=== PATIENT | female | born 1955 | race Caucasian/White ===

== ENCOUNTER → 2022-01-06 | Outpatient (CLI) | payer MEDICARE ==
[2022-01-06 16:37] LABS: BASOPHILS ABSOLUTE AUTO 0.07 K/mm3 (0.00-0.23); BASOPHILS PERCENT AUTO 1 % (0-2); EOSINOPHILS ABSOLUTE AUTO 0.23 K/mm3 (0.00-0.68); EOSINOPHILS PERCENT AUTO 4 % (0-6); Hematocrit 43.4 % (33.0-51.0); Hemoglobin 14.4 g/dL (11.5-16.0); IMMATURE GRAN ABSOLUTE AUTO 0.01 K/mm3 (0.00-0.10); IMMATURE GRAN PERCENT AUTO 0 % (0-1); LYMPHOCYTES ABSOLUTE AUTO 1.28 K/mm3 (0.84-5.20); LYMPHOCYTES PERCENT AUTO 20 % (21-46); MONOCYTES PERCENT AUTO 8 % (4-13); Mean Corpuscular HGB Conc 33.2 g/dL (31.5-36.5); Mean Corpuscular Volume 93 fL (80-100); Mean Platelet Volume 11.9 fL (9.1-12.4); NEUTROPHILS ABSOLUTE AUTO 4.25 K/mm3 (1.96-9.15); NEUTROPHILS PERCENT AUTO 67 % (41-73); Platelet Count 211 K/mm3 (150-400); RDW Coefficient Variation 12.2 % (11.7-14.2); RDW Standard Deviation 42.3 fL (35.1-46.3); Red Blood Cell Count 4.65 M/mm3 (3.80-5.20); White Blood Cell Count 6.34 K/mm3 (4.00-11.30)
[2022-01-06 17:23] LABS: Alanine Aminotransfer (ALT/SGP 38 U/L (12-78); Albumin, Blood 3.5 g/dL (3.4-5.0); Albumin/Globulin Ratio 1.3 (0.8-1.8); Alk Phos 95 U/L (50-136); Anion Gap 6 mmol/L (6-16); Aspartate Aminotrans (AST/SGOT 26 U/L (12-37); Bilirubin, Total 0.3 mg/dL (0.1-1.0); Blood Urea Nitrogen 25 mg/dL (8-24); CHOL/HDL RATIO 2.8; CO2, Blood 25 mmol/L (21-32); Calcium, Blood 9.2 mg/dL (8.5-10.1); Chloride, Blood 111 mmol/L (98-108); Cholesterol 150 mg/dL (50-200); Creatinine, Blood 0.68 mg/dL (0.40-1.00); Free Thyroxine 1.35 ng/dL (0.70-1.60); Globulin, Blood 2.6 g/dL (2.2-4.0); Glomerular Filtration Rate 95 (60-); Glucose, Blood 176 mg/dL (70-99); HDL Cholesterol 54 mg/dL (>39); LDL/HDL RATIO 1.4; Low Density Lipoprotein Chol 75 mg/dL (0-110); Potassium, Blood 3.7 mmol/L (3.5-5.5); Sodium, Blood 142 mmol/L (136-145); Thyroid Stimulating Hormone 0.089 uIU/mL (0.360-4.800); Total Protein, Blood 6.1 g/dL (6.4-8.2); Triglycerides 106 mg/dL (30-160); Very Low Density Lipoprot Chol 21 mg/dL (6-32)
== END | disposition home or self-care (01) ==
LOC: LAB 14:30 → LAB SHORT 14:30 → LAB FUT 01-06 15:15 → EDSTATUS 01-06 15:15
PROVIDERS: Family Medicine
DX: E78.5 Hyperlipidemia, unspecified (principal)
CPT/HCPCS: 80053; 80061; 84439; 84443; 85025

== ENCOUNTER → 2022-07-16 | Outpatient (CLI) | payer MEDICARE, OTHER ==
[2022-07-17 01:40] LABS: Free Thyroxine 1.2 ng/dL (0.70-1.60); Thyroid Stimulating Hormone 3.92 uIU/mL (0.360-4.800)
== END | disposition home or self-care (01) ==
LOC: LAB SHORT 11:00 → LAB 11:00
PROVIDERS: Physician Assistant
DX: E03.9 Hypothyroidism, unspecified (principal)
CPT/HCPCS: 84439; 84443

== ENCOUNTER 2022-10-19 17:05 | Emergency (ER) | payer MEDICARE, OTHER ==
[~2022-10-19] VITALS: Ht 177.8 cm; Wt 74.8 kg
[2022-10-19 17:41] LABS: BASOPHILS PERCENT AUTO 1 % (0-2); EOSINOPHILS ABSOLUTE AUTO 0.25 K/mm3 (0.00-0.68); EOSINOPHILS PERCENT AUTO 3 % (0-6); Hematocrit 49.3 % (33.0-51.0); Hemoglobin 16.2 g/dL (11.5-16.0); IMMATURE GRAN ABSOLUTE AUTO 0.03 K/mm3 (0.00-0.10); IMMATURE GRAN PERCENT AUTO 0 % (0-1); LYMPHOCYTES ABSOLUTE AUTO 1.14 K/mm3 (0.84-5.20); LYMPHOCYTES PERCENT AUTO 14 % (21-46); MONOCYTES ABSOLUTE AUTO 0.46 K/mm3 (0.16-1.47); MONOCYTES PERCENT AUTO 6 % (4-13); Mean Corpuscular HGB 31.1 pg (26.0-34.0); Mean Corpuscular HGB Conc 32.9 g/dL (31.5-36.5); Mean Corpuscular Volume 95 fL (80-100); Mean Platelet Volume 11.7 fL (9.1-12.4); NEUTROPHILS ABSOLUTE AUTO 6.13 K/mm3 (1.96-9.15); NEUTROPHILS PERCENT AUTO 76 % (41-73); Platelet Count 200 K/mm3 (150-400); RDW Coefficient Variation 12.5 % (11.7-14.2); RDW Standard Deviation 43.9 fL (35.1-46.3); Red Blood Cell Count 5.21 M/mm3 (3.80-5.20); White Blood Cell Count 8.11 K/mm3 (4.00-11.30)
[2022-10-19 18:10] LABS: Albumin, Blood 3.7 g/dL (3.4-5.0); Bilirubin, Total 0.4 mg/dL (0.1-1.0); Bun/Creatinine Ratio 24.4 (12.0-20.0); Calcium, Blood 9.2 mg/dL (8.5-10.1); Creatinine, Blood 0.82 mg/dL (0.40-1.00); Globulin, Blood 3.6 g/dL (2.2-4.0); Total Protein, Blood 7.3 g/dL (6.4-8.2)
[2022-10-19] MEDS ORDERED: HUMULIN N100 UNIT/6 SC (20:28)
[2022-10-19] MEDS ORDERED: EUTHYROX50 MCG (20:31)
[2022-10-19] MEDS ORDERED: EUTHYROX100 MCG (20:32)
[2022-10-19] MEDS ORDERED: PROP10 (20:33)
[2022-10-19] MEDS ORDERED: OXAYDO5 M1 PO (21:20)
[2022-10-19 21:27] VITALS: BP 139/91
== END 2022-10-19 21:36 | disposition home or self-care (01) ==
LOC: ER 17:05
PROVIDERS: Student in an Organized Health Care Education/Training Program
DX: S52.572A Other intraarticular fracture of lower end of left radius, initial encounter for closed fracture (principal); S52.602A Unspecified fracture of lower end of left ulna, initial encounter for closed fracture; M25.532 Pain in left wrist; E11.649 Type 2 diabetes mellitus with hypoglycemia without coma
CPT/HCPCS: 25605; 70450; 73090; 73100; 76000; 80053; 82947; 85025; 93005; 93010; 96374-59; 96375-59; 99152; 99153; 99284-25; A9270; J2405; J2704; J3010; J7030

== ENCOUNTER 2022-10-23 12:05 | Day surgery (SDC) | payer MEDICARE, OTHER ==
[~2022-10-23] VITALS: Ht 177.8 cm; Wt 77.7 kg
[2022-10-23] VITALS (9 sets, daily range): BP systolic 99–126; BP diastolic 46–69
[~2022-10-23 12:05] MED LIST: EUTHYROX100 MCG; EUTHYROX50 MCG; HUMULIN N100 UNIT/6 SC; OXAYDO5 M1 PO; PROP10
[2022-10-23] MEDS ORDERED: Lisinopril2.5 MG PO (12:42)
--- NOTE | 2022-10-23 13:14 | NUR ---
Ambulatory in Day Surgery. History, Chart, Medications and Allergies reviewed before start of procedure. Lungs clear T/O to Auscultation. Patient confirms NPO status and agrees with scheduled surgery. Pre-Op teaching done. Pt verbalizes understanding. Patient States Post-Procedure ride home has been arranged. PT BELONGINGS PLACED [facility].
--- NOTE | 2022-10-23 13:59 | NUR ---
PT GLASSES AND DENTURES TAKEN TO PACU FOR SAFEKEEPING.
--- NOTE | 2022-10-23 17:18 | NUR ---
DISCHARGE SUMMARY PT A&OX4, VSS/RA, SUNNY PO, DENIES PAIN, WIGGLES FINGERS/SPLINT-MITRA CDI/SLING ON, IV DC'D. DC INS PROVIDED. PT REP UNDERSTANDING THOSE INSTRUC INCLUDING NWB, ELEVATE/ICE AT REST/FINGER EXERCISES, FU APPT IN 2 WKS, PAIN MGMT/NARC SCRIPT TAKEN BY TO PHARMACY. LEFT FLOOR VIA WC WITH RN TO GO HOME WITH /CAPONIZER WITH ALL PERSONAL POSSESSIONS INCLUDING DC PACKET/DR HART PAIN MGMT/CONSTIPATION DIRECTIONS.
--- NOTE | 2022-10-27 07:50 | NUR ---
10/27/22 0750 Josefa Frias VERIFICATIONS: EDIT CHART.
== END 2022-10-23 23:51 | disposition home or self-care (01) ==
LOC: ORSCMMR 12:05
PROVIDERS: Orthopaedic Surgery
PROC: 0PSJ04Z Reposition Left Radius with Internal Fixation Device, Open Approach (ICD-10-PCS; principal; 2022-10-23 14:00)
DX: S52.572A Other intraarticular fracture of lower end of left radius, initial encounter for closed fracture (principal); I10 Essential (primary) hypertension; E03.9 Hypothyroidism, unspecified; E11.9 Type 2 diabetes mellitus without complications; E78.00 Pure hypercholesterolemia, unspecified; F17.210 Nicotine dependence, cigarettes, uncomplicated; Z79.4 Long term (current) use of insulin; Z79.899 Other long term (current) drug therapy
CPT/HCPCS: 82947; C1713; J0690; J1100; J1885; J2250; J2405; J2704; J3010; J7120

== ENCOUNTER 2023-03-03 10:03 | Day surgery (SDC) | payer MEDICARE ==
[~2023-03-03] VITALS: Ht 177.8 cm; Wt 77.8 kg
[~2023-03-03 10:03] MED LIST changes: +Lisinopril2.5 MG PO
[2023-03-03] MEDS ORDERED: HUMALOG100 UNIT/1 SC (10:29)
--- NOTE | 2023-03-03 11:25 | NUR ---
03/03/[address] IN ROOM FOR LOCAL ANESTHETIC ON THE LEFT HAND. TIME OUT PERFORMED AT 1119.1 MG VERSED GIVEN PER DR HART ORDERS.
[2023-03-03 12:20] VITALS: BP 157/96
--- NOTE | 2023-03-03 12:43 | NUR ---
03/03/23 1243 Kerri Chen REPORT TO RN SUSAN HIRSCH TO ASSUME CARE OF PATIENT IN STEP DOWN UNIT. PT STABLE, PAIN FREE AT THIS TIME.
== END 2023-03-03 13:10 | disposition home or self-care (01) ==
LOC: ORSCSDS 10:03
PROVIDERS: Orthopaedic Surgery
PROC: 01N54ZZ Release Median Nerve, Percutaneous Endoscopic Approach (ICD-10-PCS; principal; 2023-03-03 11:30)
DX: G56.02 Carpal tunnel syndrome, left upper limb (principal); I10 Essential (primary) hypertension; E11.9 Type 2 diabetes mellitus without complications; E78.5 Hyperlipidemia, unspecified; F32.A Depression, unspecified; F41.9 Anxiety disorder, unspecified; F17.210 Nicotine dependence, cigarettes, uncomplicated; Z79.82 Long term (current) use of aspirin; Z79.4 Long term (current) use of insulin; Z79.899 Other long term (current) drug therapy
CPT/HCPCS: 82947; J2250; J7120

== ENCOUNTER 2024-08-07 17:01 | Emergency (ER) | payer MEDICARE ==
[~2024-08-07] VITALS: Ht 177.8 cm; Wt 77.1 kg
[~2024-08-07 17:01] MED LIST changes: +HUMALOG100 UNIT/1 SC
[2024-08-07] MEDS ORDERED: Dextrose 50% 50 ML Vial ONE (17:26)
[2024-08-07] MEDS ORDERED: Dextrose 50% 50 ML Syringe IV ONE (17:40)
[2024-08-07] MEDS ORDERED: Dextrose 50% 50 ML Vial IV ONE (17:45)
[2024-08-07 18:04] VITALS: BP 148/57
[2024-08-07 18:05] LABS: BASOPHILS ABSOLUTE AUTO 0.13 K/mm3 (0.00-0.23); BASOPHILS PERCENT AUTO 2 % (0-2); EOSINOPHILS ABSOLUTE AUTO 0.36 K/mm3 (0.00-0.68); EOSINOPHILS PERCENT AUTO 5 % (0-6); Hematocrit 47.5 % (33.0-51.0); Hemoglobin 16.3 g/dL (11.5-16.0); IMMATURE GRAN ABSOLUTE AUTO 0.12 K/mm3 (0.00-0.10); IMMATURE GRAN PERCENT AUTO 2 % (0-1); LYMPHOCYTES ABSOLUTE AUTO 1.93 K/mm3 (0.84-5.20); LYMPHOCYTES PERCENT AUTO 25 % (21-46); MONOCYTES ABSOLUTE AUTO 0.51 K/mm3 (0.16-1.47); MONOCYTES PERCENT AUTO 7 % (4-13); Mean Corpuscular HGB 31.3 pg (26.0-34.0); Mean Corpuscular HGB Conc 34.3 g/dL (31.5-36.5); Mean Corpuscular Volume 91 fL (80-100); Mean Platelet Volume 11.4 fL (9.1-12.4); NEUTROPHILS ABSOLUTE AUTO 4.73 K/mm3 (1.96-9.15); NEUTROPHILS PERCENT AUTO 61 % (41-73); Platelet Count 195 K/mm3 (150-400); RDW Coefficient Variation 12.4 % (11.7-14.2); RDW Standard Deviation 41.8 fL (35.1-46.3); White Blood Cell Count 7.78 K/mm3 (4.00-11.30)
[2024-08-07 18:34] LABS: Albumin, Blood 3.9 g/dL (3.4-5.0); Albumin/Globulin Ratio 1.1 (0.8-1.8); Bilirubin, Total 0.7 mg/dL (0.1-1.0); Bun/Creatinine Ratio 23.5 (12.0-20.0); Calcium, Blood 9.3 mg/dL (8.5-10.1); Creatinine, Blood 1.02 mg/dL (0.40-1.00); Globulin, Blood 3.6 g/dL (2.2-4.0); Potassium, Blood 3.2 mmol/L (3.5-5.5); Total Protein, Blood 7.5 g/dL (6.4-8.2)
[2024-08-07] MEDS ORDERED: Potassium Chloride 20 MEQ/15 ML UDC PO ONE (19:10)
[2024-08-07] MEDS ORDERED: NS 250 ML IV SCH (19:10)
[2024-08-07] MEDS ORDERED: K-TAB ER20 ME1 PO (19:25)
== END 2024-08-07 20:13 | disposition home or self-care (01) ==
LOC: ER 17:01
PROVIDERS: Emergency Medicine
DX: E11.649 Type 2 diabetes mellitus with hypoglycemia without coma (principal); F17.210 Nicotine dependence, cigarettes, uncomplicated; E87.6 Hypokalemia; Z79.4 Long term (current) use of insulin; Z79.899 Other long term (current) drug therapy
CPT/HCPCS: 80053; 82947; 85025; 93005; 93010; 96374; 99285-25; A9270; J7030; J7799

== ENCOUNTER 2025-05-28 11:48 | Emergency (ER) | payer MEDICARE ==
[~2025-05-28] VITALS: Ht 177.8 cm; Wt 76.2 kg
[~2025-05-28 11:48] MED LIST changes: +K-TAB ER20 ME1 PO
[2025-05-28 12:34] LABS: BASOPHILS ABSOLUTE AUTO 0.06 K/mm3 (0.00-0.23); BASOPHILS PERCENT AUTO 1 % (0-2); EOSINOPHILS ABSOLUTE AUTO 0.28 K/mm3 (0.00-0.68); EOSINOPHILS PERCENT AUTO 3 % (0-6); Hematocrit 42.4 % (33.0-51.0); Hemoglobin 13.8 g/dL (11.5-16.0); IMMATURE GRAN ABSOLUTE AUTO 0.04 K/mm3 (0.00-0.10); IMMATURE GRAN PERCENT AUTO 1 % (0-1); LYMPHOCYTES ABSOLUTE AUTO 0.92 K/mm3 (0.84-5.20); LYMPHOCYTES PERCENT AUTO 11 % (21-46); MONOCYTES ABSOLUTE AUTO 0.51 K/mm3 (0.16-1.47); MONOCYTES PERCENT AUTO 6 % (4-13); Mean Corpuscular HGB Conc 32.5 g/dL (31.5-36.5); Mean Corpuscular Volume 96 fL (80-100); NEUTROPHILS ABSOLUTE AUTO 6.75 K/mm3 (1.96-9.15); NEUTROPHILS PERCENT AUTO 79 % (41-73); NRBC ABSOLUTE 0.00 K/mm3 (0.00-0.02); NRBC Auto 0.0 /100 WBC (0.0-0.2); Platelet Count 169 K/mm3 (150-400); RDW Coefficient Variation 12.3 % (11.7-14.2); RDW Standard Deviation 43.3 fL (35.1-46.3)
[2025-05-28 13:07] LABS: Alanine Aminotransfer (ALT/SGP 23.0 U/L (12-78); Albumin, Blood 3.2 g/dL (3.4-5.0); Albumin/Globulin Ratio 0.8 (0.8-1.8); Anion Gap 6.0 mmol/L (3-11); Aspartate Aminotrans (AST/SGOT 23.0 U/L (12-37); Bilirubin, Total 0.5 mg/dL (0.1-1.0); Blood Urea Nitrogen 28.0 mg/dL (8-24); CO2, Blood 29.0 mmol/L (21-32); Calcium, Blood 9.4 mg/dL (8.5-10.1); Chloride, Blood 106.0 mmol/L (98-108); Creatinine, Blood 0.96 mg/dL (0.40-1.00); Globulin, Blood 4.0 g/dL (2.2-4.0); Glucose, Blood 100.0 mg/dL (70-99); Potassium, Blood 3.7 mmol/L (3.5-5.5); Sodium, Blood 137.0 mmol/L (136-145); Total Protein, Blood 7.2 g/dL (6.4-8.2)
[2025-05-28 14:04] LABS: Magnesium, Blood 2.1 mg/dL (1.6-2.4); Phosphorus, Blood 3.2 mg/dL (2.5-4.9)
[2025-05-28 14:45] VITALS: BP 117/78
== END 2025-05-28 14:46 | disposition home or self-care (01) ==
LOC: ER 11:48
PROVIDERS: Emergency Medicine
DX: R42 Dizziness and giddiness (principal); E11.9 Type 2 diabetes mellitus without complications; F17.210 Nicotine dependence, cigarettes, uncomplicated; Z79.4 Long term (current) use of insulin; Z79.890 Hormone replacement therapy; Z79.899 Other long term (current) drug therapy; Z59.89 Other problems related to housing and economic circumstances
CPT/HCPCS: 71046; 80053; 83735; 84100; 84484; 85025; 93005; 93010; 96361; 96365; 96366; 96367; 96375; 99284-25